=== PATIENT | female | born 1965 | race Caucasian/White ===

== ENCOUNTER 2016-11-10 13:01 | Emergency (ER) | payer SELFPAY ==
[~2016-11-10] VITALS: Ht 177.8 cm; Wt 82.0 kg
[2016-11-10 13:04] VITALS: TEMP 36.7; Ht 177.8 cm; Wt 82.0 kg
--- NOTE | 2016-11-10 13:39 | DIAGNOSTIC IMAGING REPORT ---
RIGHT ANKLE 3 VIEWS HISTORY: fall; R ankle pain Right COMPARISON: None. FINDINGS: Nondisplaced spiral fracture within the distal right fibula. Lateral soft tissue swelling. No radiopaque foreign bodies. No dislocation. Small plantar heel spur. IMPRESSION: Nondisplaced distal right fibular fracture. Electronically signed by: Marco A Moody M.D. 11/10/2016 1:37 PM Dictated Date/Time: 11/10/2016 1:36 PM
[2016-11-10] MEDS ORDERED: ACETAMINOPHEN 500 MG TAB PO STA (13:45)
[2016-11-10] MEDS ORDERED: HYDR-5688 PO (13:50)
[2016-11-10 14:04] VITALS: BP 136/57; PULSE 71; O2SAT 98
--- NOTE | 2016-11-10 14:35 | EMERGENCY ROOM VISIT NOTE ---
ED Visit Note First contact with patient: 13:11 CHIEF COMPLAINT: Right ankle pain. HISTORY OF PRESENT ILLNESS: Ms. Knapp is a 51-year old white female who is brought via wheelchair into the ED accompanied by male friend complaining of right lateral ankle pain. She reports approximately 3 hours ago she was walking down a slight decline that was covered with grass that was wet. She reports she slipped and fell and when she fell she describes an inversion injury. At the time of the injury she also reports she heard a cracking sensation. She reports was no lightheaded or dizziness at the time of the fall, at the time of the fall she had no loss of consciousness and she did not strike her head. Additionally she reports she has had no signs of head injury since the fall. She is currently complaining of severe, constant lateral right ankle pain. She places her discomfort over the lateral malleolus and all the surrounding ligamentous structures. She describes her pain as a deep achy sensation. She rates her discomfort 10/10. Her pain is nonradiating. Her pain worsens with palpation in all movements of the ankle. She has not identified any alleviating factors related to the pain. She has not taken any medications for pain prior to arrival at the hospital. Associated with her pain she reports she is having a numbness/tingling sensation throughout her foot and all her toes. She denies hip pain, thigh pain, knee pain, proximal lower leg pain, foot pain. She denies any previous significant injuries or surgeries to the ankle. REVIEW OF SYSTEMS: As noted above in History of Present Illness. PAST MEDICAL HISTORY: Unspecified heart disease, asthma, status post tubal ligation. CURRENT MEDICATIONS: Patient denies. ALLERGIES TO MEDICATIONS: Patient denies. SOCIAL HISTORY: Patient is not employed; she lives with her boyfriend feels safe in her home environment; she denies tobacco and alcohol use. PHYSICAL EXAM: Vital Signs: Date Time Temp Pulse Resp B/P Pulse Ox O2 Delivery O2 Flow Rate FiO2 11/10/16 14:04 71 16 136/57 98 11/10/16 13:04 36.7 71 20 119/72 98 Room Air General: 51 year old female in moderate distress due to pain, nontoxic- appearing, afebrile and hemodynamically stable. Neurological: Awake, alert, oriented to person place and time. Answering questions appropriately and following commands. Skin: Warm dry and pink. No soft tissue injuries. Right Lower Extremity: No gross lacey deformities. No tenderness in the hip or knee. No shortening or malrotation of the leg. No tenderness throughout the thigh, knee, lower leg or foot. Moderate tenderness over the lateral malleolus with mild deformity and bony crepitus. Early ecchymosis is present. Testing for ligamentous laxity and range of motion exercises were deferred at the level of the ankle. She was able to wiggle her toes. Throughout the foot the skin is pink and warm with brisk capillary refill. Able to distinguish light sensations through all dermatomes of the foot. ED COURSE: Patient is assessed as noted above. Patient was given ice; she was offered pain medications and refused. Right Ankle X-Rays: Were read by myself and the radiologist showing a nondisplaced distal fibula fracture. Patient was given 1 g of Tylenol by mouth for pain. Patient is placed in a Ortho-Glass stirrup splint and is instructed on crutch use. Patient is educated about her condition and instructed on her treatment plan; she verbalizes understanding and agreement with the our plan. CLINICAL IMPRESSION: Right distal fibula fracture. DISPOSITION: Patient is discharged to home in stable condition accompanied by by her boyfriend; prior to departure she was reassessed and subjectively reported she was feeling better. PLAN: Comfort measures were discussed with the pain including rest, ice, elevation, splint and crutch use and a sliding pain medication scale of ibuprofen, acetaminophen and [place]; appropriate precautions were discussed with the patient with narcotic use. Patient was encouraged to follow-up with [facility] orthopedics for definitive care and treatment. Patient was encouraged return to the ED for uncontrolled pain, worsening numbness/tingling, uncontrolled swelling or any new/concerning symptoms.
== END 2016-11-10 14:05 | disposition home or self-care (01) ==
LOC: C.ED 13:04 → C.EDD 14:05
DX: S82.831A Other fracture of upper and lower end of right fibula, initial encounter for closed fracture (principal); W01.0XXA Fall on same level from slipping, tripping and stumbling without subsequent striking against object, initial encounter; Y92.89 Other specified places as the place of occurrence of the external cause; I51.9 Heart disease, unspecified; J45.909 Unspecified asthma, uncomplicated

== ENCOUNTER 2016-12-24 09:57 | Emergency (ER) | payer SELFPAY ==
[~2016-12-24] VITALS: Ht 177.8 cm; Wt 78.4 kg
[~2016-12-24 09:57] MED LIST: HYDR-5688 PO
[2016-12-24 10:08] VITALS: TEMP 36.7; Ht 177.8 cm; Wt 78.4 kg
[2016-12-24 11:09] LABS: BASO % 0.6 %; BASO ABS # 0.04 K/uL (0-0.2); COMPLETE YES; EOS % 2.7 %; HEMATOCRIT 39.8 % (37-47); IG% 0.3 %; LYMPH % 25.6 %; LYMPH ABS # 1.72 K/uL (1.2-3.4); MEAN CORPUSCULAR HGB CONC 32.2 g/dl (32-36); MEAN PLATELET VOLUME 11.1 fL (7.4-10.4); MONO % 12.1 %; NEUT % 58.7 %; PLATELET COUNT 209 K/uL (130-400); RED BLOOD COUNT 4.74 M/uL (4.2-5.4); WHITE BLOOD COUNT 6.71 K/uL (4.8-10.8)
[2016-12-24 11:26] LABS: BUN/CREATININE RATIO 17.1 (10-20); CREATININE 0.78 mg/dl (0.60-1.20); POTASSIUM 3.8 mmol/L (3.5-5.1)
[2016-12-24 11:27] LABS: CALCIUM 9.7 mg/dl (8.5-10.1)
--- NOTE | 2016-12-24 11:28 | DIAGNOSTIC IMAGING REPORT ---
RIGHT ANKLE MIN 3 VIEWS ROUTINE CLINICAL HISTORY: RIGHT, PAIN AND SWELLING, RECENT FRACTURE Right COMPARISON STUDY: Right ankle 11/10/2016. FINDINGS: Diffuse soft tissue swelling within the right ankle. No dislocation. Nondisplaced fracture within the distal right fibula. This is similar to the prior study and likely represents a healing fracture. An acute component of the fracture cannot be excluded. Small plantar heel spur. IMPRESSION: Nondisplaced fracture within the distal right fibula. This is similar to the prior study and likely represents a healing fracture. An acute component of the fracture cannot be excluded. Electronically signed by: Marco A Moody M.D. 12/24/2016 11:26 AM Dictated Date/Time: 12/24/2016 11:24 AM
[2016-12-24 11:29] LABS: ALB/GLOB RATIO 1.1 (0.9-2)
--- NOTE | 2016-12-24 11:32 | DIAGNOSTIC IMAGING REPORT ---
RIGHT LOWER EXTREMITY VENOUS DOPPLER CLINICAL HISTORY: Right lower extremity swelling. COMPARISON STUDY: No previous studies for comparison. TECHNIQUE: Sonography of the deep venous system of the right lower extremity was performed. Compression and augmentation were evaluated. FINDINGS: The common femoral, superficial femoral and popliteal veins were compressible. Augmentation was normal. Flow was shown within the deep calf vessels although the calf vessels were suboptimally assessed on this exam. IMPRESSION: No evidence of deep venous thrombus within the right lower extremity. Electronically signed by: Erich Bocanegra M.D. 12/24/2016 11:31 AM Dictated Date/Time: 12/24/2016 11:30 AM
[2016-12-24 11:36] LABS: PARTIAL THROMBOPLASTIN RATIO 1.2; PROTHROMBIN TIME (PATIENT) 10.7 SECONDS (9.0-12.0)
[2016-12-24 12:38] VITALS: BP 120/74; PULSE 78; O2SAT 99
--- NOTE | 2016-12-24 12:49 | EMERGENCY ROOM VISIT NOTE ---
ED Visit Note First contact with patient: 10:12 CHIEF COMPLAINT: Left ankle swelling 10 days HISTORY OF PRESENT ILLNESS: Patient is a 51-year-old white female who is roughly 6 weeks status post casting of a nondisplaced spiral fracture of her right distal fibula. She was followed by [facility] orthopedics. She was seen by them last on the when she had x-rays and her cast was removed. She was placed in a walking shoe, and is still partial weightbearing using crutches. Patient states that since the cast was removed, she has had swelling and redness in her foot and ankle region. She states that it was this red and swollen when the cast was taken off, but she was reassured by orthopedics. Patient states that some of the swelling and redness go down when she has an elevated, but he returns I'll most immediately as soon as it is in a dependent position. She also notes a sensation of tingling or plating diminished sensation in the bottom of her foot. She states she cannot distinguish the texture of the floor when she places her foot on it. She is concerned that the foot will give out on her. She denies that it is particularly painful, more just red and swollen. She has been performing gentle range of motion exercises as instructed by orthopedics. She has some swelling up into the [place] and calf area. She denies any chest pain, palpitations or shortness of breath. She does have a history of a PE in 2006. She states at that time they did not find any evidence for DVT, and she believes a hypercoagulable workup was negative. She was on Coumadin from 2006 through 2011, at which point she was switched to 4 baby aspirin tablets daily. REVIEW OF SYSTEMS: Review of systems as per HPI. All other systems reviewed were negative. 10 systems reviewed. PMH: Electronic medical records are reviewed and summarized as above/below. See Problem List. SOCIAL HISTORY: Patient lives at home. Former smoker, quit 2008. PHYSICAL EXAM: Vital Signs: Reviewed Nurse's notes. CONSTITUTIONAL: Patient is a pleasant, well-appearing 51-year-old white female who is awake and alert and in no acute distress. Her vital signs are stable. HEART: Regular rate and rhythm. LUNGS: Clear to auscultation. NEUROLOGICAL: Alert oriented, coherent. PERRL, EOMs full. EXTREMITIES: Examination of the right lower extremity notes mild circumferential soft tissue swelling over the right ankle and into the dorsum of the foot. She has had is 1+ to trace pitting edema noted to the pretibial area, just to the tibial tuberosity. The calf is soft and nontender. No palpable cords. She has some tenderness laterally over the fracture site. Skin is otherwise intact, slight erythema is noted but no increased warmth or induration. No overt cellulitic changes. Dorsalis pedis and posterior tibialis pulses are easily palpable. Capillary refills less than 2 seconds. She can wiggle and move her toes normally. She has fixed hammertoe deformity of toes 2 through 5. Flexion, extension, inversion and eversion are limited due to her recent fracture. Sensation light touch is intact. EMERGENCY DEPARTMENT COURSE: Given the patient's reported history of a PE, IV lock was initiated and laboratory studies were collected. CBC with differential , coags and CMP were drawn and were all unremarkable. X-rays of the right ankle were obtained which showed healing fracture without any evidence for acute abnormality compared to her prior films. Ultrasound of the right lower extremity was obtained and was negative for DVT. Exam is not consistent with cellulitis. Differential diagnosis also entertained included DVT, superficial thrombophlebitis, dependent edema due to recent casting and fracture, CRPS, among others. She was encouraged to keep her appointment with orthopedics as she has scheduled, and to return to the emergency department for any other concerns. RIGHT ANKLE MIN 3 VIEWS ROUTINE CLINICAL HISTORY: RIGHT, PAIN AND SWELLING, RECENT FRACTURE Right COMPARISON STUDY: Right ankle 11/10/2016. FINDINGS: Diffuse soft tissue swelling within the right ankle. No dislocation. Nondisplaced fracture within the distal right fibula. This is similar to the prior study and likely represents a healing fracture. An acute component of the fracture cannot be excluded. Small plantar heel spur. IMPRESSION: Nondisplaced fracture within the distal right fibula. This is similar to the prior study and likely represents a healing fracture. An acute component of the fracture cannot be excluded. RIGHT LOWER EXTREMITY VENOUS DOPPLER CLINICAL HISTORY: Right lower extremity swelling. COMPARISON STUDY: No previous studies for comparison. TECHNIQUE: Sonography of the deep venous system of the right lower extremity was performed. Compression and augmentation were evaluated. FINDINGS: The common femoral, superficial femoral and popliteal veins were compressible. Augmentation was normal. Flow was shown within the deep calf vessels although the calf vessels were suboptimally assessed on this exam. IMPRESSION: No evidence of deep venous thrombus within the right lower extremity. Problem List Medical Problems: (1) Fracture of distal end of right fibula Status: Resolved (2) Heart Disease, Unspecified Status: Chronic (3) History of pulmonary embolism Status: Resolved (4) Unspecified Asthma, Uncomplicated Status: Chronic Current/Historical Medications No Active Prescriptions or Reported Meds Allergies Coded Allergies: No Known Allergies (Unverified , 12/24/16) Vital Signs Date Time Temp Pulse Resp B/P Pulse Ox O2 Delivery O2 Flow Rate FiO2 12/24/16 12:38 78 18 120/74 99 Room Air 12/24/16 11:40 81 18 120/74 98 Room Air 12/24/16 10:08 36.7 99 19 130/91 95 Room Air Laboratory Results 12/24/16 11:00 Red Blood Count 4.74, Mean Corpuscular Volume 84.0, Mean Corpuscular Hemoglobin 27.0, Mean Corpuscular Hemoglobin Concent 32.2, Mean Platelet Volume 11.1, Neutrophils (%) (Auto) 58.7, Lymphocytes (%) (Auto) 25.6, Monocytes (%) (Auto) 12.1, Eosinophils (%) (Auto) 2.7, Basophils (%) (Auto) 0.6, Neutrophils # (Auto ) 3.94, Lymphocytes # (Auto) 1.72, Monocytes # (Auto) 0.81, Eosinophils # (Auto ) 0.18, Basophils # (Auto) 0.04 12/24/16 11:00 Test 12/24/16 11:00 White Blood Count 6.71 K/uL (4.8-10.8) Red Blood Count 4.74 M/uL (4.2-5.4) Hemoglobin 12.8 g/dL (12.0-16.0) Hematocrit 39.8 % (37-47) Mean Corpuscular Volume 84.0 fL (80-100) Mean Corpuscular Hemoglobin 27.0 pg (25-34) Mean Corpuscular Hemoglobin Concent 32.2 g/dl (32-36) Platelet Count 209 K/uL (130-400) Mean Platelet Volume 11.1 fL (7.4-10.4) Neutrophils (%) (Auto) 58.7 % Lymphocytes (%) (Auto) 25.6 % Monocytes (%) (Auto) 12.1 % Eosinophils (%) (Auto) 2.7 % Basophils (%) (Auto) 0.6 % Neutrophils # (Auto) 3.94 K/uL (1.4-6.5) Lymphocytes # (Auto) 1.72 K/uL (1.2-3.4) Monocytes # (Auto) 0.81 K/uL (0.11-0.59) Eosinophils # (Auto) 0.18 K/uL (0-0.5) Basophils # (Auto) 0.04 K/uL (0-0.2) RDW Standard Deviation 42.7 fL (36.4-46.3) RDW Coefficient of Variation 13.9 % (11.5-14.5) Immature Granulocyte % (Auto) 0.3 % Immature Granulocyte # (Auto) 0.02 K/uL (0.00-0.02) Prothrombin Time 10.7 SECONDS (9.0-12.0) Prothromb Time International Ratio 1.0 (0.9-1.1) Activated Partial Thromboplast Time 30.8 SECONDS (21.0-31.0) Partial Thromboplastin Ratio 1.2 Anion Gap 7.0 mmol/L (3-11) Est Creatinine Clear Calc Drug Dose 93.3 ml/min Estimated GFR () 102.7 Estimated GFR (Non- 88.6 BUN/Creatinine Ratio 17.1 (10-20) Calcium Level 9.7 mg/dl (8.5-10.1) Total Bilirubin 0.5 mg/dl (0.2-1) Aspartate Amino Transf (AST/SGOT) 14 U/L (15-37) Alanine Aminotransferase (ALT/SGPT) 18 U/L (12-78) Alkaline Phosphatase 73 U/L (45-117) Total Protein 7.3 gm/dl (6.4-8.2) Albumin 3.8 gm/dl (3.4-5.0) Globulin 3.5 gm/dl (2.5-4.0) Albumin/Globulin Ratio 1.1 (0.9-2) Departure Information Impression Primary Impression: Right ankle swelling Prescriptions No Active Prescriptions or Reported Meds Referrals No Doctor, Assigned (PCP) Patient Instructions My [facility] Additional Instructions Wear the CASEY stockings as discussed. Acetaminophen(Tylenol) may be used for fever or pain. Use 1000mg every six hours as needed. Avoid using more than 3000mg in a 24 hour period. This medication can be taken if you need to drive, work, or perform activities which may be dangerous when taking narcotic pain medication. Ice compresses for 20 minutes at a time four times daily for 2-3 days. Continue your walking boot and crutches as instructed by orthopedics. Range of motion exercises according to orthopedics. Rest and elevate your injury. Continue current medications. Return to the ER immediately for any numbness, tingling, severe pain, extreme swelling in the extremity or as needed. Follow-up with orthopedics as you have scheduled.
== END 2016-12-24 13:09 | disposition home or self-care (01) ==
LOC: C.EDB 10:03 → C.EDA 13:09
DX: M25.472 Effusion, left ankle (principal); J45.909 Unspecified asthma, uncomplicated; Z86.711 Personal history of pulmonary embolism; Z79.82 Long term (current) use of aspirin; Z87.891 Personal history of nicotine dependence